=== PATIENT | female | born 1935 | race Caucasian/White ===

== ENCOUNTER 2018-11-02 09:27 | Inpatient (IN) ==
[2018-11-02 09:49] LABS: BASO# 0.04 X1000 (0.0-0.2); BASO% 0.5 % (0.0-0.8); EOS# 0.12 X1000 (0.0-0.7); EOS% 1.5 % (0.0-10.0); HEMATOCRIT 38.7 % (37.0-47.0); HEMOGLOBIN 13.2 g/dL (12.0-16.0); IMM GRAN# 0.01 X1000 (0.0-0.04); IMM GRAN% 0.1 % (0.0-0.5); LYMPH% 21.9 % (20.5-51.1); MCH 28.1 PG (27-31); MCHC 34.1 g/dL (33-37); MCV 82.3 FL (81-99); MONO# 0.75 X1000 (0.11-0.59); MONO% 9.7 % (1.7-9.3); MPV 8.2 FL (7.4-10.4); NEUT# 5.14 X1000 (1.4-6.5); NEUT% 66.3 % (42.2-75.2); PLT 349 X1000 (130-400); RDW 14.5 % (11.5-14.5); WBC 7.76 X1000 (4.8-10.8)
--- NOTE | 2018-11-02 09:52 | EKG Report ---
Test Performed on : 11/02/2018 09:28:21 AM Test Reason : weakness Blood Pressure : / mmHG Vent. Rate : 076 BPM Atrial Rate : 076 BPM P-R Int : 172 ms QRS Dur : 094 ms QT Int : 410 ms P-R-T Axes : 071 038 102 degrees QTc Int : 461 ms Normal sinus rhythm. Possible Left atrial enlargement Left ventricular hypertrophy with repolarization abnormality Abnormal ECG No previous ECGs available Unconfirmed Result
[2018-11-02 10:07] LABS: ALBUMIN 4.3 g/dL (3.5-5.0); CALCIUM 9.6 mg/dL (8.8-10.2); TOTAL BILIRUBIN 0.5 mg/dL (0.20-1.00); TOTAL PROTEIN 7.4 g/dL (6.3-8.3)
[2018-11-02 10:11] LABS: INR 0.95; PROTIME 13.2 Seconds (11.0-16.0)
[2018-11-02] MEDS ORDERED: KLOR-CON PO ONE (10:31)
[2018-11-02 10:43] LABS: BILIRUBIN URINE NEGATIVE (NEGATIVE); BLOOD URINE 1+ (NEGATIVE); CLARITY SL. CLOUDY (CLEAR); COLOR YELLOW; GLUCOSE URINE NEGATIVE (NEGATIVE); KETONE URINE NEGATIVE (NEGATIVE); LEUKOCYTES URINE 2+ (NEGATIVE); NITRITE URINE NEGATIVE (NEGATIVE); PROTEIN URINE 2+(100 mg/dL) mg/dL (NEGATIVE); UROBILINOGEN URINE NORMAL
--- NOTE | 2018-11-02 10:45 | Diag Imaging Result Doc PS360 ---
EXAM: CHEST-2 VIEWS 11/02/2018 HISTORY: weaknes ? fall TECHNIQUE: PA and lateral chest COMMENT: There is flattening of the hemidiaphragms. There is apparent COPD. There is a small platelike opacity in the left costophrenic angle. No evidence of pneumothorax or pleural fluid collections is present. The heart size and pulmonary vascularity are within normal limits. There is anterior wedging of what appears to be T10. There are no previous studies available for comparison. IMPRESSION: COPD. Apparent compression fracture of T10 of uncertain age. Electronically signed by Gurvinder San 11/02/2018 10:43 AM
[2018-11-02 10:58] LABS: URINE BACTERIA 1+ /HFP; URINE CAST NONE SEEN /LPF; URINE CRYSTAL NONE SEEN /HPF; URINE EPITHELIAL CELLS >10 /HPF (<10); URINE RBC <10 /HPF (<10); URINE SOURCE CLEAN CATCH; URINE WBC TNTC /HPF (<10); URINE YEAST NONE SEEN /HPF
--- NOTE | 2018-11-02 11:29 | EKG Report ---
Test Performed on : 11/02/2018 11:23:14 AM Test Reason : faint Blood Pressure : / mmHG Vent. Rate : 077 BPM Atrial Rate : 077 BPM P-R Int : 198 ms QRS Dur : 090 ms QT Int : 388 ms P-R-T Axes : 071 048 094 degrees QTc Int : 439 ms Normal sinus rhythm. Possible Left atrial enlargement ST & T wave abnormality, consider lateral ischemia Abnormal ECG When compared with ECG of 02-NOV-2018 09:28, (Unconfirmed) No significant change was found Unconfirmed Result
[2018-11-02] MEDS ORDERED: HYZAAR 100/12.5 MG TAB PO ONE (11:59)
[2018-11-02] MEDS ORDERED: HYDROCHLOROTHIAZIDE ONE (12:05)
[2018-11-02] MEDS ORDERED: HYDROCHLOROTHIAZIDE PO ONE (12:06)
[2018-11-02] MEDS ORDERED: COZAAR PO ONE (12:06)
[2018-11-02] MEDS ORDERED: NITROGLYCERIN TOP ONE (12:22)
--- NOTE | 2018-11-02 13:58 | Diag Imaging Result Doc PS360 ---
EXAM: CT ANGIOGRM PULMONARY ARTERIES INDICATION: faint TECHNIQUE: This exam was performed using automated exposure control, adjustment of mA or kV according to patient size, and/or use of iterative reconstruction technique. Thin section axial images and 3-D MIPS were obtained. COMPARISON: None. FINDINGS: There is no evidence of pulmonary embolism. There is extensive aortic atherosclerotic disease. There is ectasia of the descending aorta measuring up to 3.5 cm in diameter. There is no evidence of aortic dissection. There is trace pericardial fluid. There is no evidence of significant mediastinal or hilar lymphadenopathy. There is advanced pulmonary emphysema. There are mild patchy fibrotic changes at the periphery of both lungs. No airspace consolidations are appreciated. There is no pleural fluid collection and no pneumothorax. Limited views of the upper abdomen are essentially unremarkable. There is a compression deformity at T10 at the superior endplate. It is probably chronic as there is sclerosis at its margin. IMPRESSION: 1.Advanced pulmonary emphysema and mild patchy fibrotic changes at both lung peripheries. 2.Mild ectasia of the descending aorta. 3.Compression deformity at T10 and is probably chronic. 4.No evidence of pulmonary embolism. Electronically signed by Ventura Olivares 11/02/2018 1:55 PM
--- NOTE | 2018-11-02 15:29 | PROVIDER DOCUMENTATION ---
This chart was entered by Deborah Boston Scribe, acting as scribe for Adan Cain MD. HPI-General Adult - General Chief Complaint: Weakness Stated Complaint: SYNCOPE Time Seen by Provider: 11/02/18 09:28 Source: patient, EMS (first response) Allergies/Adverse Reactions: Patient Allergies Allergy/AdvReac Type Severity Reaction Status Date / Time No Known Allergies Allergy Verified 11/02/18 09:30 Home Medications: Home Medication List Medication Instructions Recorded Confirmed Last Taken Type Amlodipine Besylate [Norvasc] 5 mg PO DAILY 11/02/18 11/02/18 11/02/18 History Clonidine Patch [Aghdadjy-Qle-5] 1 patch TD Q7D 11/02/18 11/02/18 11/02/18 History SIMVAstatin [Zocor] 10 mg PO HS 11/02/18 11/02/18 Unknown History - History of Present Illness -Gen Adult Nature of Presenting Problems: 83 yowf presents to the ed with c/o fall this am when walking inside from being outside on her porch. pt sts "I felt my legs getting weak and I just fell" pt denies injury or jean and sts son was with her and witnessed fall. pt came by ems to ed to be checked out do to sons request. pt on exam is nontoxic in appearance Location of Pain/Injury: reports: none Pain Radiation: reports: no radiation Quality of Pain: reports: none Severity: reports: mild Onset/Duration: reports: just prior to arrival Timing: reports: gone now Context/Activities at Onset: reports: light activity Modifying Factors: improves with: nothing Associated Symptoms: reports: weakness (BLE), trouble walking (secondary to BLE weakness). denies: back/neck pain, chest pain, cough, fatigue, fever/chills, headaches, joint pain, nausea, shortness of breath, syncope, vomiting Similar Symptoms Previously?: No Recently seen or treated by another doctor?: No Review of Systems - Adult - REVIEW OF SYSTEMS - ADULT Constitutional: denies: chills, fever Eyes: reports: no symptoms reported Ears, Nose, Mouth & Throat: reports: no symptoms reported Cardiovascular: denies: chest pain, palpitations, syncope Respiratory: denies: cough, pleurisy, shortness of breath, wheezing Gastrointestinal: denies: abdominal pain, diarrhea, nausea, vomiting Genitourinary: reports: no symptoms reported Musculoskeletal: reports: see HPI, muscle weakness (BLE). denies: back pain, joint pain, joint swelling, neck pain Integumentary: reports: no symptoms reported Neurological: denies: ataxia, dizziness/vertigo, headache/migraines, loss of balance, numbness, paresthesia, seizure, slurred speech, syncope, tremors Psychiatric: reports: no symptoms reported Endocrine: reports: no symptoms reported Hematologic/Lymphatic: reports: no symptoms reported Allergic/Immunologic: reports: no symptoms reported All Other Systems: Reviewed and Negative Past History - Adult - PAST MEDICAL HISTORY-ADULT Review of Records: reports: Old Records Reviewed, Nursing Assessment Review, Medications Reviewed, Social history reviewed & non-contributory. Major Childhood Illnesses: reports: denies history Cardiovascular: reports: HTN, hyperlipidemia Respiratory: reports: denies history Gastrointestinal: reports: denies history Obstetrical/Gynecological: reports: denies history Genitourinary: reports: denies history Musculoskeletal: reports: denies history Hand Dominance: Right Handed Neurological: reports: denies history Psychiatric: reports: denies history Endocrine/Immune: reports: denies history Other Conditions: reports: denies history - PRIOR SURGERIES/PROCEDURES Surgical/Procedure History: reports: reviewed, not pertinent - IMMUNIZATION STATUS Childhood Immunizations: See Nurse Assessment Flu Vaccine: See Nurse Assessment - FAMILY HISTORY Family History: reviewed, not pertinent - SOCIAL HISTORY Smoking: cigarettes, greater than 1 pack/day Provider spent 3-5 mins advising pt. on dangers of tobacco.: Discussed manners to quit use, and f/u contacts for add'l counseling. Substance Use: denies Living Situation: family (lives with son) Physical Exam-General - PHYSICAL EXAM-ADULT Initial Vital Signs Reviewed: Yes (noted BP 229/88) - CONSTITUTIONAL General Appearance: appears well, alert, no apparent distress (pt denies pain or injury) - EYES Eyes: PERRL/EOMI, pink conjunctivae - HEAD, EARS, NOSE, MOUTH & THROAT HENMT: moist mucous membranes, normal ENT inspection - NECK Neck: non-tender, full range of motion, normal inspection, carotid bruit (bilateral) - RESPIRATORY Respiratory: chest non-tender, lungs clear, normal breath sounds - CARDIOVASCULAR Cardiovascular: normal peripheral pulses, regular rate, rhythm - GASTROINTESTINAL (ABDOMEN) Abdominal Exam: normal bowel sounds, non tender, soft - LYMPHATIC Lymphatic: no adenopathy - MUSCULOSKELETAL Back Exam: normal inspection, no CVA tenderness, no vertebral tenderness Extremity: normal range of motion, non-tender, normal gait, normal inspection, no pedal edema, no calf tenderness, normal capillary refill, pelvis stable - SKIN Integumentary: normal color, normal turgor, warm/dry - NEUROLOGIC Neurologic: grossly normal, no motor/sensory deficits - PSYCHIATRIC Psych/Mental Status: normal mood/affect, normal thought content, normal thought process, oriented x 3 Progress - PLAN OF CARE/RESULTS Progress/Plan/Lab Results: Vital Signs - 8 hr 11/02/18 09:27 11/02/18 09:52 Temperature 98 F Pulse Rate 77 83 Respiratory Rate 18 20 Blood Pressure 211/100 202/102 O2 Sat by Pulse Oximetry 95 95 Laboratory Results - last 24 hr 11/02/18 09:33 WBC 7.76 RBC 4.70 Hgb 13.2 Hct 38.7 MCV 82.3 MCH 28.1 MCHC 34.1 RDW Std Deviation 14.5 Plt Count 349 MPV 8.2 Immature Gran % (Auto) 0.1 Neut % (Auto) 66.3 Lymph % (Auto) 21.9 Reeves % (Auto) 9.7 H Eos % (Auto) 1.5 Baso % (Auto) 0.5 Immature Gran # (Auto) 0.01 Neut # (Auto) 5.14 Lymph # (Auto) 1.70 Reeves # (Auto) 0.75 H Eos # (Auto) 0.12 Baso # (Auto) 0.04 Orders Category Date Time Status Cardiac Monitoring DIRECTED Care 11/02/18 09:24 Active Nursing- Obtain EKG ONCE Care 11/02/18 09:24 Active Saline Loc NOW Care 11/02/18 09:52 Active CHEST-2 VIEWS [RAD] Stat Exams 11/02/18 09:24 Ordered CBC WITH DIFF [HEME] Stat Lab 11/02/18 09:33 Completed CK PROFILE [SP CHEM] Stat Lab 11/02/18 09:33 Received CMP [COMPREHENSIVE METABOLIC PANEL] [CHEM] Stat Lab 11/02/18 09:33 Received D-DIMER [COAG] Stat Lab 11/02/18 09:33 Received MAGNESIUM [CHEM] Stat Lab 11/02/18 09:33 Received PRO B-NATRIURETIC PEPTIDE Stat Lab 11/02/18 09:33 Received PROTIME WITH INR [COAG] Stat Lab 11/02/18 09:33 Received TROPONIN T Stat Lab 11/02/18 09:[address] W/POSS RFLX CULT [URINALYSIS] Stat Lab 11/02/18 09:27 Uncollected EKG [EKG] Stat Ther 11/02/18 09:24 Draft Result Diagrams: 11/02/18 09:33 11/02/18 09:33 - REASSESSMENT Reassessment #1 Time Reassessed: 12:17 (pt is resting in bed) Status: improving Reassessment #2 Time Reassessed: 14:46 (pt is resting, in no distress) Status: unchanged - EKG 1 Time of EKG reading by physician:: 09:28 EKG Read and Signed by:: Adan Cain EKG Interpretation (*Must complete 3 of following elements*): Abnormal Rate: 76 Rhythm: nsr Jones: normal QRS: LVH (with repolarization abnormality) IL Interval: normal ST Wave: normal Comments: possible left atrial enlargment 2 Time of EKG reading by physician:: 11:23 EKG Read and Signed by:: Adan Cain EKG Interpretation (*Must complete 3 of following elements*): Abnormal Rate: 77 Rhythm: nsr Jones: normal QRS: other (poss left atrial enlargmeent) IL Interval: normal Prior EKG Comparison: changes noted Comments: st and t wave abnormlaity, consider lateralischemia 3 Time of EKG reading by physician:: 15:14 EKG Read and Signed by:: Adan Cain EKG Interpretation (*Must complete 3 of following elements*): Abnormal Rate: 75 Rhythm: nsr Jones: normal QRS: LVH (with repolarization abnormality) IL Interval: normal ST Wave: normal Prior EKG Comparison: changes noted - XRAY 1 XRAY: Bilateral XRAY Study: Chest Impression: See EMR Report (EXAM: CHEST-2 VIEWS 11/02/2018 HISTORY: weaknes ? fall TECHNIQUE: PA and lateral chest COMMENT: There is flattening of the hemidiaphragms. There is apparent COPD. There is a small platelike opacity in the left costophrenic angle. No evidence of pneumothorax or pleural fluid collections is present. The heart size and pulmonary vascularity are within normal limits. There is anterior wedging of what appears to be T10. There are no previous studies available for comparison. IMPRESSION: COPD. Apparent compression fracture of T10 of uncertain age. Electronically signed by Gurvinder San 11/02/2018 10:43 AM 11/02/18 1043 Interpreting Physician: Gurvinder Valdes MD Dictated Date/Time: 11/02/18 1041 cc: Adan Cain MD; None,PCP) - CT/MRI 1 CT Study: Angiogram Impression: See EMR Report (EXAM: CT ANGIOGRM PULMONARY ARTERIES INDICATION: faint TECHNIQUE: This exam was performed using automated exposure control, adjustment of mA or kV according to patient size, and/or use of iterative reconstruction technique. Thin section axial images and 3-D MIPS were obtained. COMPARISON: None. FINDINGS: There is no evidence of pulmonary embolism. There is extensive aortic atherosclerotic disease. There is ectasia of the descending aorta measuring up to 3.5 cm in diameter. There is no evidence of aortic dissection. There is trace pericardial fluid. There is no evidence of significant mediastinal or hilar lymphadenopathy. There is advanced pulmonary emphysema. There are mild patchy fibrotic changes at the periphery of both lungs. No airspace consolidations are appreciated. There is no pleural fluid collection and no pneumothorax. Limited views of the upper abdomen are essentially unremarkable. There is a compression deformity at T10 at the s uperior endplate. It is probably chronic as there is sclerosis at its margin. IMPRESSION: 1.Advanced pulmonary emphysema and mild patchy fibrotic changes at both lung peripheries. 2.Mild ectasia of the descending aorta. 3.Compression deformity at T10 and is probably chronic. 4.No evidence of pulmonary embolism. Electronically signed by Ventura Olivares 11/02/2018 1:55 PM 11/02/18 1355 Interpreting Physician: Ventura Olivares MD Dictated Date/Time: 11/02/18 1346 cc: Adan Cain MD; None,PCP) - CONSULTS/PCP/HOSPITALIST Notification #1 *Consult/PCP/Hospitalist*: CT is currently down and spoke with dr traylor Time Discussed: 12:48 Reason/Comments: phone consult #2 Consult: hopsitalist dr levin Time Discussed: 14:46 Consult Disposition: Admit Departure - Departure Date of Disposition Decision: 07/26/19 Time of Disposition Decision: 14:47 DIAGNOSIS: Tobacco use disorder Fall Qualifiers: Encounter type: initial encounter Qualified Code(s): W19.XXXA - Unspecified fall, initial encounter HTN (hypertension) Qualifiers: Hypertension type: unspecified Qualified Code(s): I10 - Essential (primary) hypertension Disposition: ADMITTED INPATIENT 09 Certified Medical Emergency: Emergent Condition: Stable Additional Freetext Instructions: ED Follow Up Instructions: You have been treated by a care provider in the Emergency Department. These instructions are being provided to you so you can have an understanding of how to care for yourself upon discharge. Upon discharge from the Emergency Department, you are responsible for making arrangements for follow-up care by a physician of your choice. Take all prescribed medications as directed. Return to the Emergency Department immediately for any new or worsening symptom s. You may call the Physician Referral phone number at [phone] to obtain a list of Physicians who are taking new patients. Referrals and Follow-Ups: None,PCP [Primary Care Provider] - - Critical Care Note This patient required my direct & personal management of CC.: No Attestation - Physician/ CASSIDY Attestation Patient care was provided by Advanced Practice Provider:: No The physician spent face to face time with patient:: Yes Advanced Practice Provider documentation review:: Supervising physician onsite and consulted in the evaluation and care of this patient. The physician did have a face to face encounter with the patient. This chart was documented by the indicated scribe, (Deborah Boston Scribe) and accurately reflects the services I performed and decisions made by me, Adan Cain MD, as attested by the provider's signature.
[2018-11-02] MEDS ORDERED: NICODERM PATCH TD ONE (16:02)
--- NOTE | 2018-11-02 16:33 | EKG Report ---
Test Performed on : 11/02/2018 3:14:11 PM Test Reason : repeat Blood Pressure : / mmHG Vent. Rate : 075 BPM Atrial Rate : 075 BPM P-R Int : 174 ms QRS Dur : 090 ms QT Int : 428 ms P-R-T Axes : -21 011 -28 degrees QTc Int : 477 ms Normal sinus rhythm. Left ventricular hypertrophy with repolarization abnormality Abnormal ECG When compared with ECG of 02-NOV-2018 11:23, (Unconfirmed) T wave inversion now evident in Inferior leads Unconfirmed Result
[2018-11-02] MEDS ORDERED: ROCEPHIN 1 GM in NS 50 ML IV SCH (18:29)
[2018-11-02] MEDS ORDERED: ZOFRAN IV PRN (18:29)
--- NOTE | 2018-11-02 19:39 | HISTORY AND PHYSICAL ---
CHIEF COMPLAINT: Fall, syncope. HISTORY OF PRESENT ILLNESS: This is an 83-year-old female who presented to the emergency room after falling while walking inside the house from her porch. She states that she became weak and did not know what was going on and just fell. Is unsure if she did have a loss of consciousness. The son asked that she come to the ER for evaluation. The patient states that she has been weak for a few days. She has had trouble walking for a few days. She denies any other symptoms. The patient is a poor historian. She is unable to tell me her doctor, where she lives. She is unable to tell about her medicines or answer most questions about her prior health. At this time there are no family members present. PAST MEDICAL HISTORY: Hypertension and hyperlipidemia. PAST SURGICAL HISTORY: Unknown. SOCIAL HISTORY: She states she smokes a pack a day. She denies alcohol or illicit drug use. ALLERGIES: No known drug allergies. HOME MEDICATIONS: A list will be obtained by the nursing staff once verified will review restart as appropriate. REVIEW OF SYSTEMS: Difficult to obtain from the patient. She does state that she has been weak. She denied any dizziness, any chest pain or palpitations, any shortness of breath, any fevers or chills, any nausea, vomiting, diarrhea, constipation, black or bloody vomitus or stools, any hematuria, dysuria, frequency, urgency. PHYSICAL EXAMINATION: GENERAL: This is an 86-year-old female who is lying on the stretcher in the emergency room in no distress. VITAL SIGNS: Blood pressure is 121/84 with a heart rate of 81, respirations are 19, temperature is 97.9 degrees with room air saturations 94-96%. HEENT: Pupils equal, round, react to light EOMs are intact sclerae anicteric. Head is normocephalic, atraumatic. Mucous membranes are moist. NECK: Supple with trachea midline. She does have bruits noted bilateral on auscultation. CARDIOVASCULAR: Regular rate and rhythm. S1 and S2 appreciated. Calves are nontender bilateral with peripheral pulses palpable. PULMONARY: Breath sounds are clear with no increased work of breathing noted. Chest rises and falls symmetric respiration. GASTROINTESTINAL: Abdomen soft, nontender, nondistended with bowel sounds in all 4 quadrants. GENITOURINARY: No CVA or suprapubic tenderness. NEUROLOGIC: She is alert, she is oriented to herself, her birthday, she knows she is at a hospital. She is unable to state the state or the city she is in at this time. LABS: WBC is 7.7 with hemoglobin 13.2, hematocrit 38.7, platelets of 349,000. Sodium is 136, potassium 3, BUN 12, creatinine 1 with a glucose of 135. Troponins are negative on multiple occasions. Urinalysis a clean-catch specimen has 2+ protein, 1+ blood, too numerous to count white blood cells with greater than 10 epithelial cells, 1+ bacteria. D-dimer is 2.37. Chest x- ray reveals COPD and apparent compression fracture of T10 of uncertain age. Pulmonary arteriogram revealed advanced pulmonary emphysema, mild ectasia of the descending aorta, compression deformity at T10 which is probably chronic. No evidence of pulmonary embolism. Urine culture is pending. ASSESSMENT AND PLAN: 1. Fall. 2. Generalized weakness. 3. Possible urinary tract infection. 4. Hypertension. 5. Tobacco use and abuse. 6. Hypokalemia. 7. Elevated D-dimer with a negative CTA pulmonary. PLAN: The patient will be transferred to [facility]. She will be admitted to medical floor, placed on telemetry with neuro checks for at least 24 hours. Will update and confirm her home medications and restart as appropriate. Urine culture is pending. Will give Rocephin daily and further antibiotics will be culture driven. Repeat a CBC and CMP in the morning. We will obtain an echocardiogram as well as a lower extremity Doppler. As she did have a questionable syncopal episode and she does have bilateral bruits will obtain a carotid ultrasound bilateral. Give nicotine patch daily. She will be placed on fall precautions. For DVT prophylaxis will use SCDs, gastrointestinal prophylaxis Prilosec. We will continue to trend her troponins and cardiac profile. Further treatments pending hospital course. Dictated by CHELSEA Hernandez for Justus Rios MD cc: CHELSEA Hernandez MD
--- NOTE | 2018-11-02 20:58 | HISTORY AND PHYSICAL ---
ADDENDUM: Patient is an 83-year-old female who apparently was at home ambulating. She had a witnessed near syncopal episode. She has been having some weakness as well. Her D-dimer is elevated. CT is negative for pulmonary emboli. Ultrasound is pending. I am going to admit her to the hospital, place her on telemetry, IV fluids, and will follow. cc: Justus Rios MD
[2018-11-03 04:58] LABS: BASO# 0.03 X1000 (0.0-0.2); BASO% 0.4 % (0.0-0.8); EOS# 0.13 X1000 (0.0-0.7); EOS% 1.9 % (0.0-10.0); HEMATOCRIT 34.8 % (37.0-47.0); HEMOGLOBIN 11.7 g/dL (12.0-16.0); IMM GRAN# 0.02 X1000 (0.0-0.04); IMM GRAN% 0.3 % (0.0-0.5); LYMPH# 2.34 X1000 (1.2-3.4); LYMPH% 34.9 % (20.5-51.1); MCH 28.3 PG (27-31); MCHC 33.6 g/dL (33-37); MCV 84.1 FL (81-99); MONO# 0.66 X1000 (0.11-0.59); MONO% 9.9 % (1.7-9.3); MPV 8.9 FL (7.4-10.4); NEUT# 3.52 X1000 (1.4-6.5); NEUT% 52.6 % (42.2-75.2); PLT 279 X1000 (130-400); RBC 4.14 XMIL (4.2-5.4); RDW 14.8 % (11.5-14.5)
[2018-11-03 05:28] LABS: POTASSIUM 2.9 mmol/L (3.5-5.1)
[2018-11-03 05:29] LABS: ALB/GLOB RATIO 1.4; ALBUMIN 3.6 g/dL (3.5-5.0); CALCIUM 9.3 mg/dL (8.8-10.2); CREATININE 1.8 mg/dL (0.5-0.9); TOTAL BILIRUBIN 0.31 mg/dL (0.20-1.00); TOTAL PROTEIN 6.1 g/dL (6.3-8.3)
[2018-11-03] MEDS: PRILOSEC PO SCH (06:21)
[2018-11-03] MEDS: NICODERM PATCH TD SCH (09:27)
[2018-11-03] MEDS ORDERED: KLOR-CON PO ONE (11:01)
[2018-11-03] MEDS: LR 1,000 ML IV SCH (11:32)
--- NOTE | 2018-11-03 12:34 | PROGRESS NOTE ---
DATE: 11/03/2018 SUBJECTIVE: This morning, Ms. Perkins refers to be doing fairly okay. However, she refers that when she got up to do her orthostatic vitals, she felt slightly dizzy, and she had to sit down. OBJECTIVE: Vital Signs: Current blood pressure is 111/48, pulse of 67, respirations 18, temperature is 98.6. The patient is saturating 99% on room air. The patient's standing vital signs were blood pressure 94/44 with a pulse of 94. General: Ms. Perkins is an elderly female, 83 years old. She was in bed, no distress. HEENT: Mucosa is slightly dry. Anicteric. Acyanotic. Neck: Supple. Chest: Good air entry bilateral. There were no crepitations, no rhonchi. Cardiovascular: Regular rate and rhythm. Abdomen: Soft, nontender. Bowel sounds present. Extremities: No pedal edema. SNOWBLOWER MECHANIC: The patient is awake, alert, oriented. LABORATORY DATA: WBC is 6.70, hemoglobin is still at 13.7, platelet count of 279. Chemistry is also reviewed. Potassium is 2.9, creatinine is 1.8. ASSESSMENT: 1. Syncope with positive orthostatic vitals, consistent with syncope induced by orthostatic hypotension, most likely due to a combination of blood pressure medications at home as well as volume depletion. For now, we are going to continue with fluid resuscitation. 2. Clinical volume depletion. Will continue with gentle IV fluids overnight and re-evaluate her hydration status as well as orthostatic vitals tomorrow. 3. History of hypertension. For now, we will withhold antihypertensives. 4. Acute kidney injury secondary to volume depletion. We will continue with the plan as outlined above and re-evaluate and repeat her renal functions for tomorrow morning. 5. Abnormal urinalysis. However, the patient is asymptomatic. I do not think her symptoms were as a result of UTI. I withheld the antibiotics for now. cc: MD TERESO Lorenzo
--- NOTE | 2018-11-03 15:33 | Extremity Venous Study ---
PROCEDURE NAME: Venous U/S Bilateral Legs - 11/02/2018 PROCEDURE: Lower extremity venous duplex study. DATE OF STUDY: 11/03/2018. REFERRING PHYSICIAN: Gui READING PHYSICIAN: Michelle. DESKTOP TECHNICIAN: Umesh. INDICATION: Elevated D-dimer. FINDINGS: The deep and superficial veins of both lower extremities were imaged throughout their course. They are compressible, patent and without thrombus. INTERPRETATION: No DVT or SVT of either lower extremity. cc: MD Katerin Woodward CRNP
[2018-11-04] MEDS: LR 1,000 ML IV SCH ×3 (01:47→19:25)
[2018-11-04] MEDS: PRILOSEC PO SCH (06:33)
[2018-11-04] MEDS ORDERED: TYLENOL PO PRN (06:41)
[2018-11-04 08:00] LABS: BASO# 0.04 X1000 (0.0-0.2); BASO% 0.6 % (0.0-0.8); EOS# 0.28 X1000 (0.0-0.7); EOS% 3.9 % (0.0-10.0); HEMATOCRIT 33.5 % (37.0-47.0); HEMOGLOBIN 11.2 g/dL (12.0-16.0); IMM GRAN# 0.02 X1000 (0.0-0.04); IMM GRAN% 0.3 % (0.0-0.5); LYMPH# 2.02 X1000 (1.2-3.4); LYMPH% 28.2 % (20.5-51.1); MCH 28.1 PG (27-31); MCHC 33.4 g/dL (33-37); MONO# 0.68 X1000 (0.11-0.59); MONO% 9.5 % (1.7-9.3); MPV 8.8 FL (7.4-10.4); NEUT# 4.13 X1000 (1.4-6.5); NEUT% 57.5 % (42.2-75.2); PLT 290 X1000 (130-400); RBC 3.99 XMIL (4.2-5.4); RDW 14.8 % (11.5-14.5); WBC 7.17 X1000 (4.8-10.8)
[2018-11-04 08:26] LABS: ALBUMIN 3.1 g/dL (3.5-5.0); CALCIUM 9.1 mg/dL (8.8-10.2); CREATININE 2.2 mg/dL (0.5-0.9); PHOSPHORUS 3.5 mg/dL (2.7-4.5); POTASSIUM 3.9 mmol/L (3.5-5.1)
[2018-11-04] MEDS ORDERED: DUONEB (A & A) INH PRN (09:02)
[2018-11-04] MEDS: NICODERM PATCH TD SCH (09:16)
[2018-11-04] MEDS: NORVASC PO SCH (09:17)
--- NOTE | 2018-11-04 09:26 | PROGRESS NOTE ---
DATE: 11/04/2018 SUBJECTIVE: This morning, Ms. Perkins referred to be doing okay. Denies any new complaints. She denies any blacking out. OBJECTIVE: Vital Signs: Blood pressure is 182/68, pulse of 71, respirations are 19, temperature is 98.5 degrees, the patient is saturating 94-95% on room air. General Examination: Ms. Perkins is an 83-year-old, female. She is in bed. No distress. HEENT: Mucosa is pink. Anicteric. Acyanotic. Neck: Supple. Chest: Good air entry bilaterally. Some faint end expiratory wheezing. Cardiovascular: Regular rate and rhythm. There is a 3/6 TR murmur and a 2/6 murmur. Abdomen: Soft, nontender. Bowel sounds present. Extremities: No pedal edema. PATTERNMAKER PRESSURE CAST: The patient is awake, alert, and oriented. Laboratory Data: This morning, WBCs 7.17, hemoglobin is 11.2, platelet count of 290,000. Chemistry: Sodium is 135, potassium is 3.9, chloride is 98, bicarb is 26, creatinine is up to 2.3. ASSESSMENT: 1. Syncope on presentation, improved. The patient has not had any more syncopal episodes. Orthostatic vitals yesterday were positive. There is a plan to repeat it this morning with pending for the results. 2. Clinical volume depletion. Clinically, patient is doing better. 3. Renal failure, presumably acute as a result of volume depletion. Creatinine has gotten slightly worsened overnight. Patient is on Omeprazole. We will do renal studies including urine sodium, urine creatinine, and urine eosinophils. We will also get a renal ultrasound. 4. Hypertension. Medications were withheld yesterday because of episodes of hypotension. We will slowly reintroduce her home medications. 5. Heart murmur. The patient seems to have a tricuspid regurgitation as well as an aortic stenosis murmur. In the face of the syncope, we are going to do an echocardiogram to rule out any severe aortic stenosis as a possible etiology of the syncopal episode. 6. History of advanced chronic obstructive pulmonary disease/emphysema. The patient is currently asymptomatic. We are going to order as needed nebulization if needed. PLAN: In general, I think Ms. Perkins is doing a lot better. Clinically, she feels well. Her blood pressure has gone up so we will restart her on some of her home medications. We are also pending her orthostatic vitals this morning. Her creatinine has worsened. She does not seem to have any obstructive bladder on physical exams. We will do renal studies to get a better idea of these renal abnormalities. cc: Ananda De MD MTDD
--- NOTE | 2018-11-04 10:05 | ECHO REPORT ---
ORDER DATE: 11/03/2018 STUDY PERFORMED: A 2D echocardiogram. FINDINGS: 1. Technically suboptimal study. 2. Very poor parasternal windows. 3. Aortic valve leaflets not well visualized. 4. Pulmonic valve not well visualized. 5. Mitral valve was normal. 6. There is mitral annular calcification. 7. Tricuspid valve was normal. 8. There is mild mitral regurgitation. 9. Mild tricuspid regurgitation. 10. Peak velocity across the tricuspid valve less than 2 m/sec. 11. Peak velocity across the aortic valve less than 2 m/sec. 12. There is no aortic stenosis. 13. There is mild aortic regurgitation by Doppler studies. 14. Normal left ventricular cavity size. 15. Estimated ejection fraction of 60%. 16. There is left ventricular hypertrophy. 17. There is diastolic dysfunction. 18. Anterior echo-free space suggestive of pericardial fat pad noted. 19. There is no pericardial effusion or obvious intracardiac mass or thrombus seen. cc: MD Katerin Mendenhall CRNP
[2018-11-04 10:40] LABS: UR CREAT RANDOM 26.9 mg/dL (11-20)
--- NOTE | 2018-11-04 13:03 | Diag Imaging Result Doc PS360 ---
EXAM: US RENAL 2 (RETROPER) COMPLETE 11/04/2018 HISTORY: audrey/arf TECHNIQUE: Renal ultrasound COMMENT: The kidneys are without evidence of hydronephrosis or mass. The urinary bladder is not distended. The right kidney is 10.5 x 4.2 x 3.6 cm, the left is 9.9 x 4.4 x 5.2 cm. There is a 12 mm cyst in the left kidney anteriorly. IMPRESSION: No evidence of obstructive uropathy. Electronically signed by Gurvinder San 11/04/2018 1:01 PM
[2018-11-05] MEDS ORDERED: APRESOLINE IV PRN
[2018-11-05] MEDS: APRESOLINE IV PRN ×2 (00:31→20:19)
[2018-11-05] MEDS: LR 1,000 ML IV SCH (05:31)
[2018-11-05 08:13] LABS: HEMATOCRIT 35.1 % (37.0-47.0); HEMOGLOBIN 11.7 g/dL (12.0-16.0); MCH 28.3 PG (27-31); MCHC 33.3 g/dL (33-37); MCV 84.8 FL (81-99); MPV 8.8 FL (7.4-10.4); RBC 4.14 XMIL (4.2-5.4); RDW 14.7 % (11.5-14.5); WBC 6.52 X1000 (4.8-10.8)
[2018-11-05 08:55] LABS: ALBUMIN 3.5 g/dL (3.5-5.0); PHOSPHORUS 3.3 mg/dL (2.7-4.5); POTASSIUM 3.2 mmol/L (3.5-5.1)
[2018-11-05] MEDS: NORVASC PO SCH (09:20)
[2018-11-05] MEDS: NICODERM PATCH TD SCH (09:20)
--- NOTE | 2018-11-05 14:18 | PROGRESS NOTE ---
DATE: 11/05/2018 SUBJECTIVE: This morning Ms. Perkins refers to be doing a lot better. Denies any dizziness. Orthostatic vitals checked this morning continues to be positive. OBJECTIVE: Vital signs: Blood pressure 188/74, pulse of 87, respirations 20, and temperature 98.1 degrees. General: Ms. Perkins is an 83-year-old female. She is in bed in no distress. HEENT: Mucosa is pink and moist. Anicteric and acyanotic. Neck: Supple. Chest: Clear to auscultation. Cardiovascular: Regular rate and rhythm. Abdomen: Soft. Nontender. Extremities: No pedal edema. Cardiovascular: Regular rate and rhythm. There is a 3/6 TR murmur and a 2/6 murmur. Abdomen: Soft and nontender. Extremities: No pedal edema. SLIVER LAP MACHINE TENDER: Patient is awake, alert, and oriented. LABORATORY DATA: Data has been removed. CBC is 6.52, hemoglobin is 11.7, and platelet count of 324,000. Chemistry is also reviewed. Potassium is 3.2, creatinine is 2.0. PTH 74. ASSESSMENT: 1. Syncope on presentation secondary to orthostatic hypotension. 2. Clinical volume depletion improving. 3. Acute kidney injury. We will continue with fluid resuscitation. Creatinine is getting better. 4. Hypertension. 5. Advanced COPD/emphysema, currently asymptomatic. cc: Ananda De MD MTDD
--- NOTE | 2018-11-05 15:32 | Diag Imaging Result Doc PS360 ---
CHEST-2 VIEWS - 11/05/2018 INDICATION: hypoxia/chest pain COMPARISON: 11/02/2018 FINDINGS: Stable COPD. Stable biapical pleural scarring. No infiltrates or edema. Stable mild compression deformity in the lower thoracic spine. Heart size and pulmonary vascularity remain normal. IMPRESSION: No change from prior. COPD with pulmonary scarring. Electronically signed by Germain Guillaume 11/05/2018 3:29 PM
[2018-11-05] MEDS: NS 1,000 ML IV SCH (15:46)
[2018-11-06] MEDS: APRESOLINE IV PRN (04:07)
[2018-11-06] MEDS: NS 1,000 ML IV SCH (04:07)
[2018-11-06 08:04] LABS: BASO# 0.03 X1000 (0.0-0.2); BASO% 0.5 % (0.0-0.8); EOS# 0.22 X1000 (0.0-0.7); EOS% 3.7 % (0.0-10.0); HEMATOCRIT 35.4 % (37.0-47.0); LYMPH# 1.12 X1000 (1.2-3.4); MCH 28.1 PG (27-31); MCHC 33.9 g/dL (33-37); MCV 82.9 FL (81-99); MONO# 0.57 X1000 (0.11-0.59); MONO% 9.6 % (1.7-9.3); MPV 8.9 FL (7.4-10.4); NEUT# 3.97 X1000 (1.4-6.5); NEUT% 67.2 % (42.2-75.2); PLT 308 X1000 (130-400); RBC 4.27 XMIL (4.2-5.4); RDW 14.9 % (11.5-14.5); WBC 5.91 X1000 (4.8-10.8)
[2018-11-06 08:23] LABS: ALBUMIN 3.6 g/dL (3.5-5.0); CALCIUM 9.5 mg/dL (8.8-10.2); CREATININE 1.4 mg/dL (0.5-0.9); PHOSPHORUS 3.1 mg/dL (2.7-4.5); POTASSIUM 3.1 mmol/L (3.5-5.1)
[2018-11-06] MEDS ORDERED: COREG PO SCH (09:30)
[2018-11-06] MEDS: NORVASC PO SCH (10:12)
[2018-11-06] MEDS: NICODERM PATCH TD SCH (10:12)
[2018-11-06 12:11] VITALS: BP 139/76
--- NOTE | 2018-11-06 21:52 | DISCHARGE SUMMARY ---
ADMISSION DATE: 11/02/2018 DISCHARGE DATE: 11/06/2018 DISPOSITION: Home. FOLLOWUP: 1. Dr. Liriano. 2. Dr. Griffin. CONSULTATIONS DURING THIS ADMISSION: None. IMAGING STUDIES OF SIGNIFICANCE: 1. Chest x-ray on presentation did show COPD and apparent compression fracture of T11 of uncertain age. 2. Pulmonary CTA of the lungs did show advanced pulmonary emphysema, mild patchy fibrotic changes, and mild ectasia of the descending aorta. There is also a compression deformity of T10 and it is probably chronic. 3. Doppler ultrasound of the lower extremities was negative. 4. Echocardiogram did show an ejection fraction of 60%, left ventricular hypertrophy, some diastolic dysfunction. No wall motion abnormality. 5. Renal ultrasound showed no evidence of obstructive uropathy. 6. Repeat chest x-ray showed no changes from prior. COPD with pulmonary scarring. ADMISSION DIAGNOSES: 1. Fall. 2. Generalized weakness. 3. Possible urinary tract infection. 4. Hypotension. 5. Tobacco use. DIAGNOSES AT TIME OF DISCHARGE: 1. Syncope on presentation secondary to orthostatic hypotension, improved. 2. Clinical volume depletion. 3. Acute kidney injury secondary to volume depletion. 4. Hypertension. 5. Advanced chronic obstructive pulmonary disease/emphysema. 6. Chronic T10 compression fracture. Patient is advised to follow up with Neurosurgery services in [place]. Of note, patient does not have any neurological deficit from that. She has been evaluated on 2 different occasions by Physical Therapy. She has been able to do 270, full weightbearing with contact guard assistance. 7. Mild cognitive decline. Questionable for Alzheimer's disease. DISCHARGE MEDICATIONS: 1. Simvastatin 10 mg p.o. at bedtime. 2. Amlodipine 5 mg p.o. daily. 3. Donepezil 5 mg p.o. daily. 4. Carvedilol 6.25 b.i.d. RECOMMENDATIONS: 1. Patient to follow up with Neurosurgery services in [place] within 1 week. 2. Patient is to follow up with her primary care doctor, Dr. Liriano, in 1 week with a repeat BMP to follow up on her renal function. 3. Patient to follow up with Neurology for adequate and proper evaluation of her cognitive decline. PRESENTING COMPLAINT: Syncope. HISTORY OF PRESENTING COMPLAINT: Ms. Perkins is an 83-year-old, female, with a history of multiple comorbidities including hypertension, dyslipidemia, who came to the emergency department after she fell. She was sitting on her porch, got up to go and do something inside, and she felt dizzy and fell. She was not sure if she lost consciousness. Apparently, she has been feeling weak for some time. Upon presenting to the emergency department, the patient was evaluated. She was hypertensive. However, orthostatic vitals were positive. The patient was subsequently admitted for orthostatic hypotension. HOSPITAL COURSE: Ms. Perkins was admitted to the medical floor, was found to be volume depleted, was adequately volume resuscitated. Klonopin patch was also removed. Subsequently, her blood pressure got better and she became hypertensive. Subsequently, she was started back on her amlodipine, and this morning, we have added carvedilol. Ms. Perkins on her investigation, it also became apparent that she had a chronic T10 compression fracture, which is currently asymptomatic. She has been advised to follow up with Neurosurgery services in [place]. During the hospital course, creatinine went up to 2.2 at some point. This has gradually come down to 1.4 this morning. The patient has been advised to continue adequate oral hydration, and repeat her renal function tests within a week and follow up with her primary care doctor (Dr. Liriano). This morning, Ms. Perkins refers to feel a whole lot better. She was evaluated by Physical Therapy on the and on the . The last evaluation revealed that she was able to have a good maintenance of balance without any handhold support. She also had good maintenance of balance without any handhold support with static standing. She did 270, full weightbearing, with physical therapy yesterday, with front wheel walker. We think this morning, Ms. Perkins is clinically stable for discharge. She has no more dizziness. She is still mildly orthostatic, but not symptomatic. She is being discharged in stable condition. TIME SPENT FOR DISCHARGE: 36 minutes. cc: MD TERESO Lorenzo
== END 2018-11-06 14:22 | disposition home health service (06) | DRG 312 ==
LOC: EDBD → P.ED 09:27 → SUATTDRO 15:54 → P.EDIPHOLD 15:54 → 1N 17:21
PROVIDERS: ATTEND Internal Medicine
CPT/HCPCS: 71020; 71046; 71275; 76770; 80053; 80069; 81001; 82310; 82550; 82570; 83735; 83880; 83970; 84100; 84300; 84484; 85025; 85027; 85379; 85610; 87088; 87205; 93005; 93306; 93880; 93970; 94640; 94761; 97163; 97530; 99285; A9270; J0360; J0696; J7030; J7120; Q9967

== ENCOUNTER 2018-12-01 14:22 | Inpatient (IN) ==
--- NOTE | 2018-12-01 14:43 | PROVIDER DOCUMENTATION ---
HPI-General Adult - General Chief Complaint: Weakness Stated Complaint: WEAKNESS Time Seen by Provider: 12/01/18 14:50 Source: patient, EMS Allergies/Adverse Reactions: Patient Allergies Allergy/AdvReac Type Severity Reaction Status Date / Time No Known Allergies Allergy Verified 11/02/18 09:30 Home Medications: Home Medication List Medication Instructions Recorded Confirmed Last Taken Type Amlodipine Besylate [Norvasc] 10 mg PO DAILY 11/02/18 12/01/18 11/02/18 History SIMVAstatin [Zocor] 10 mg PO HS 11/02/18 12/01/18 Unknown History Carvedilol [Coreg] 6.25 mg PO BID #120 tab 11/06/18 12/01/18 Unknown Rx Donepezil HCl [Aricept] 5 mg PO QHS 12/01/18 12/01/18 Unknown History Sertraline [Zoloft] 25 mg PO QHS 12/01/18 12/01/18 Unknown History - History of Present Illness -Gen Adult Nature of Presenting Problems: 83 yr old F, hx of HTN, hyperlipidemia, presents today via EMS after sudden onset of weakness. Pt states that yesterday she was able to ambulate on her own, without her walker, but this morning, had difficulty getting out of bed. She denies dizziness, falls, LOC, no chest pain or abdominal pain, no nausea or vomiting, no change in her normal bowel habits, no localized weakness - only a general weakness and trembling of her upper extremities. She called her son and told him she felt she needed medical attention, and he subsequently called EMS. Location of Pain/Injury: reports: none Pain Radiation: reports: no radiation Quality of Pain: reports: none (pt denies pain, just reports weakness) Onset/Duration: reports: 1-3 hours ago Timing: reports: still present Context/Activities at Onset: reports: none Modifying Factors: improves with: nothing Associated Symptoms: reports: weakness. denies: chest pain, diaphoresis, dizziness, EENT symptoms, nausea, shortness of breath, vomiting, trouble walking Similar Symptoms Previously?: Yes (recent admission end of October) Recently seen or treated by another doctor?: Yes - Sickle Cell Pain Related Context Sickle Cell Pain Location: reports: none Review of Systems - Adult - REVIEW OF SYSTEMS - ADULT Constitutional: reports: other (weakness) Eyes: reports: no symptoms reported Ears, Nose, Mouth & Throat: reports: no symptoms reported Cardiovascular: reports: no symptoms reported Respiratory: reports: no symptoms reported Gastrointestinal: reports: no symptoms reported Genitourinary: reports: no symptoms reported Musculoskeletal: reports: no symptoms reported Integumentary: reports: no symptoms reported Neurological: reports: no symptoms reported. denies: dizziness/vertigo Past History - Adult - PAST MEDICAL HISTORY-ADULT Review of Records: reports: Nursing Assessment Review, Medications Reviewed, Social history reviewed & non-contributory. Major Childhood Illnesses: reports: denies history Cardiovascular: reports: HTN, hyperlipidemia Respiratory: reports: denies history Gastrointestinal: reports: denies history Obstetrical/Gynecological: reports: denies history Genitourinary: reports: denies history Musculoskeletal: reports: denies history Neurological: reports: denies history Psychiatric: reports: denies history Endocrine/Immune: reports: denies history Other Conditions: reports: denies history - PRIOR SURGERIES/PROCEDURES Surgical/Procedure History: reports: reviewed, not pertinent - IMMUNIZATION STATUS Childhood Immunizations: See Nurse Assessment Flu Vaccine: See Nurse Assessment - FAMILY HISTORY Family History: reviewed, not pertinent - SOCIAL HISTORY Smoking: quit less than 1 year Substance Use: none/never Physical Exam-General - PHYSICAL EXAM-ADULT Initial Vital Signs Reviewed: Yes - CONSTITUTIONAL General Appearance: alert, no apparent distress - EYES Eyes: PERRL/EOMI - HEAD, EARS, NOSE, MOUTH & THROAT HENMT: normocephalic/atraumatic, moist mucous membranes - NECK Neck: non-tender, full range of motion, supple. negative: carotid bruit - RESPIRATORY Respiratory: chest non-tender, lungs clear, normal breath sounds - GASTROINTESTINAL (ABDOMEN) Abdominal Exam: normal bowel sounds, non tender, soft - MUSCULOSKELETAL Extremity: non-tender DTR: knee (R): 1+, knee (L): 1+ - NEUROLOGIC Neurologic: grossly normal, no motor/sensory deficits - PSYCHIATRIC Psych/Mental Status: normal mood/affect, other (oriented to person, not place, confused on time - does know year, but unsure of day or month) Progress - PLAN OF CARE/RESULTS Progress/Plan/Lab Results: Vital Signs - 8 hr 12/01/18 14:40 Temperature 98.2 F Pulse Rate 55 L Respiratory Rate 18 Blood Pressure 165/71 O2 Sat by Pulse Oximetry 96 Trop x 2 WNL; EKG x2 shows sinus bradycardia with possible evidence of old infarct. Elevated BNP; pt shows no clinical signs of edema. 5:42PM: repeat BP 170/103. Given pt;s unexplained onset of weakness, and family's report of worsening dementia, further work-up may be indicated. At this time, lower cordoba spicion for stroke as pt did not demonstrate focal deficit on exam. Pt is alert and oriented to self, but did have difficulty with place and time. Result Diagrams: 12/01/18 14:55 12/01/18 14:55 - EKG 1 Time of EKG reading by physician:: 14:45 EKG Read and Signed by:: Raymundo Santos Rate: 51 Rhythm: sinus Robbins: normal QRS: normal ST Wave: non-specific ST changes Prior EKG Comparison: changes noted (this EKG demonstrates bradycardia and ST&T wave changes; previous EKG back in October 2018 was NSR) 2 Time of EKG reading by physician:: 16:46 EKG Read and Signed by:: Raymundo Santos Rate: 59 Rhythm: sinus Robbins: normal QRS: normal ST Wave: non-specific ST changes Prior EKG Comparison: unchanged from prior - XRAY 1 XRAY Study: Chest Impression: Normal XRAY Interpretation: no acute findings; some vascular congestion - CONSULTS/PCP/HOSPITALIST Notification #1 *Consult/PCP/Hospitalist*: Vanessa Smith/Dr. De Time Discussed: 17:25 Reason/Comments: UTI, weakness of unknown etiology Consult Disposition: Admit Departure - Departure Date of Disposition Decision: 12/01/18 Time of Disposition Decision: 17:52 DIAGNOSIS: Weakness generalized UTI (urinary tract infection) Qualifiers: Urinary tract infection type: acute cystitis Hematuria presence: without hematuria Qualified Code(s): N30.00 - Acute cystitis without hematuria Disposition: ADMITTED INPATIENT 09 Certified Medical Emergency: Emergent Condition: Fair - Critical Care Note This patient required my direct & personal management of CC.: No Attestation - Physician/ CASSIDY Attestation Patient care was provided by Advanced Practice Provider:: No The physician spent face to face time with patient:: Yes (Spoke with pt and patient's son at bedside. Will admit for additional work-up of weakness, treatment of UTI) Advanced Practice Provider documentation review:: Supervising physician onsite and consulted in the evaluation and care of this patient. The physician did have a face to face encounter with the patient.
[2018-12-01] MEDS ORDERED: NS 1,000 ML IV ONE (14:46)
[2018-12-01 15:06] LABS: BASO# 0.03 X1000 (0.0-0.2); BASO% 0.5 % (0.0-0.8); EOS% 1.5 % (0.0-10.0); HEMATOCRIT 33.2 % (37.0-47.0); HEMOGLOBIN 11.2 g/dL (12.0-16.0); IMM GRAN# 0.02 X1000 (0.0-0.04); IMM GRAN% 0.3 % (0.0-0.5); LYMPH# 1.96 X1000 (1.2-3.4); LYMPH% 30.2 % (20.5-51.1); MCH 28.3 PG (27-31); MCHC 33.7 g/dL (33-37); MCV 83.8 FL (81-99); MONO# 0.58 X1000 (0.11-0.59); MONO% 8.9 % (1.7-9.3); MPV 8.5 FL (7.4-10.4); NEUT% 58.6 % (42.2-75.2); PLT 356 X1000 (130-400); RBC 3.96 XMIL (4.2-5.4); RDW 14.2 % (11.5-14.5); WBC 6.49 X1000 (4.8-10.8)
[2018-12-01 15:16] LABS: INR 1.06
[2018-12-01] MEDS ORDERED: ASPIRIN PO ONE (15:20)
[2018-12-01 15:42] LABS: ALB/GLOB RATIO 1.4; ALBUMIN 3.8 g/dL (3.5-5.0); CALCIUM 9.3 mg/dL (8.8-10.2); CREATININE 0.9 mg/dL (0.5-0.9); MAGNESIUM 2.1 mg/dL (1.5-2.7); POTASSIUM 3.7 mmol/L (3.5-5.1); TOTAL BILIRUBIN 0.34 mg/dL (0.20-1.00); TOTAL PROTEIN 6.5 g/dL (6.3-8.3)
--- NOTE | 2018-12-01 15:42 | EKG Report ---
Test Performed on : 12/01/2018 2:42:18 PM Test Reason : CP Blood Pressure : / mmHG Vent. Rate : 051 BPM Atrial Rate : 051 BPM P-R Int : 200 ms QRS Dur : 090 ms QT Int : 460 ms P-R-T Axes : 068 028 101 degrees QTc Int : [address] & T wave abnormality, consider lateral ischemia Abnormal ECG When compared with ECG of 02-NOV-2018 15:14, (Unconfirmed) T wave inversion no longer evident in Inferior leads T wave inversion more evident in Lateral leads QT has shortened Unconfirmed Result
--- NOTE | 2018-12-01 16:01 | Diag Imaging Result Doc PS360 ---
CHEST-1 VIEW - 12/01/2018 INDICATION: weakness COMPARISON: 11/05/2018 FINDINGS: The lungs are clear. Heart size is normal. No pneumothorax or pleural effusion. IMPRESSION: Negative exam. Electronically signed by Germain Guillaume 12/01/2018 3:59 PM
[2018-12-01 16:56] LABS: BILIRUBIN URINE NEGATIVE (NEGATIVE); BLOOD URINE NEGATIVE (NEGATIVE); COLOR YELLOW; GLUCOSE URINE NEGATIVE (NEGATIVE); KETONE URINE NEGATIVE (NEGATIVE); LEUKOCYTES URINE LARGE (NEGATIVE); NITRITE URINE NEGATIVE (NEGATIVE); PH URINE 6.5; PROTEIN URINE 50 mg/dL (NEGATIVE); TURBIDITY URINE CLEAR (CLEAR); UR EPITHELIAL CELLS <10 /HPF (<10); URINE BACTERIA NEGATIVE /HPF; URINE RBC <10 /HPF (<10); URINE SOURCE CLEAN CATCH; URINE WBC 20-40 /HPF (<10); UROBILINOGEN URINE NORMAL (NORMAL)
--- NOTE | 2018-12-01 17:04 | EKG Report ---
Test Performed on : 12/01/2018 4:42:59 PM Test Reason : CP Blood Pressure : / mmHG Vent. Rate : 059 BPM Atrial Rate : 059 BPM P-R Int : 194 ms QRS Dur : 090 ms QT Int : 420 ms P-R-T Axes : 078 034 086 degrees QTc Int : [address] & T wave abnormality, consider lateral ischemia Abnormal ECG When compared with ECG of 01-DEC-2018 14:42, (Unconfirmed) No significant change was found Unconfirmed Result
[2018-12-01] MEDS ORDERED: SEPTRA DS PO ONE (17:41)
[2018-12-01] MEDS ORDERED: ZOFRAN IV PRN (18:31)
[2018-12-01] MEDS ORDERED: TYLENOL PO PRN (18:31)
[2018-12-01] MEDS ORDERED: ROCEPHIN 1 GM in NS 50 ML IV SCH (18:31)
--- NOTE | 2018-12-01 19:35 | HISTORY AND PHYSICAL ---
PRIMARY CARE PROVIDER: Fredrick Armendariz. CHIEF COMPLAINT: Per patient "nothing." HPI: Ms Perkins is an 83-year-old female who carries a past medical history of hypertension, hyperlipidemia, questionable Alzheimer dementia she has not been formally diagnosed, tobacco use, most recently admitted to our service back in late October for urinary tract infection and syncope as well as clinical volume depletion and acute kidney injury and chronic T10 compression fracture. The patient was advised to follow up with neuro services on her son reports at bedside she has had a decline in her status most notable since July of this year. He states he went down to visit her in July, she lives in [facility]. He found out at that time that she was running on a 2 year tag, had let her car insurance as well as her supplemental medical insurance lapse and had several unpaid bills. He stated in June she had to go into the hospital. I believe that time was for generalized weakness as well. At that time he brought her to [place] to live with him and his and since that time she has had waxing, waning cognitive function. He states that she eats almost every hour. She is up at night rooming in the house. At times she is adamant about using her walker, other times she refuses even though she is too weak to go without it. He brought her to the ED today at her request however now she is stating that she wants to go back home and she wants to go back to her residence in [facility] where she can continue to smoke cigarettes because she has done so since age of 21. However since moving in with her son they have taken her cigarettes away. Workup in the ED was essentially unremarkable except for a mild UTI for which we will initiate her on IV antibiotics and consult Physical Therapy as well as Pressure Tank Operator for possible rehab placement. PAST MEDICAL HISTORY: 1. Hypertension. 2. Hyperlipidemia. 3. Questionable Alzheimer dementia. 4. Chronic T10 compression fracture. 5. Advanced chronic COPD emphysema. 6. Hypertension. SOCIAL HISTORY: She was a pack-a-day smoker since the age of 21 until her family recently took her cigarettes away. No alcohol or illicit drug use. She is from [facility] [place]. She has been a total of 5 times. Her most recent marriage was for 26 years and she is now . She has 1 son who was at the bedside I believe 1 grandchild. She reports she used to be an avid bowler. FAMILY HISTORY: Noncontributory . PAST SURGICAL HISTORY: Unknown. HOME MEDICATIONS: 1. Norvasc 10 mg p.o. daily. 2. Coreg 6.25 mg p.o. b.i.d. 3. Aricept 5 mg p.o. at bedtime. 4. Zoloft 25 mg p.o. at bedtime. 5. Zocor 10 mg p.o. at bedtime. ALLERGIES: No known drug allergies. PHYSICAL EXAMINATION: VITAL SIGNS: Temperature 98.2 degrees, heart rate 56, respiration 28, blood pressure 165/71, O2 is 96% on room air. GENERAL: Ms. Perkins is a feisty 83-year-old female who is sitting up in the bed drinking coffee. HEENT: Atraumatic, normocephalic. PERRL. NECK: Supple. Trachea midline. CARDIOVASCULAR: S1, S2 appreciated, positive for murmur. RESPIRATORY: Lung sounds clear bilaterally. GI: Soft, nontender, nondistended. Positive bowel sounds 4 quads. NEUROLOGIC: She is awake, alert, oriented name, date of , location as well as her previous home. She knows the name . DIAGNOSTIC DATA: Chest x-ray was a negative exam. LABORATORY DATA: White count 6, hemoglobin and hematocrit 11 and 33, platelet count is 356,000. Sodium 138, potassium 3.7, BUN 16, creatinine 0.9, blood glucose is 88, 2 sets of troponins have been negative. ProBNP is 1205. Urinalysis shows 20 to 40 WBC, large leukocytes. ASSESSMENT AND PLAN: 1. Probable urinary tract infection. Will initiate her on IV antibiotics, check a urine culture and patient was recently diagnosed and treated with urinary tract infection. 2. Generalized weakness and deconditioning. Will consult physical therapy. 3. Question of Alzheimer dementia. She has had no formal diagnosis that the son is aware of. 4. Chronic T10 compression fracture. Again will consult physical therapy. 5. Advanced chronic obstructive pulmonary disease, emphysema without exacerbation. 6. Hypertension. Will continue her home medications. 7. Further recommendations to follow physician evaluation, laboratory and diagnostic data. Dictated by CHELSEA Waite for Ananda De MD cc: CHELSEA Aguirre
--- NOTE | 2018-12-01 19:57 | HISTORY AND PHYSICAL ---
ADDENDUM: I have seen and examined Ms. Perkins today. Ms. Perkins refers to have been getting progressively weaker over the course of the week. She was discharged with family from the hospital just under a month ago because of orthostatic hypotension, clinical volume depletion, and cognitive decline. She seems to have been doing pretty well about a week after her hospitalization, but since then she has been gradually getting weak. She is now having to use her walker on a daily basis, and her son, who is her [employer], brought her in because of all these complaints. Upon presentation, she was found to have normal vitals with a pulse of 55, but that improved. Her physical exam is unremarkable except for mucous membranes being dry, but she has no neurological deficits. Her sensation is intact, and her power is 5/5 in the lower extremities. She seems to be very articulate, but she could not tell me the date. It appears she has some mild cognitive decline. Her current x-ray shows clear lungs, no pneumothorax. ASSESSMENT: 1. Multiple falls with generalized weakness, most likely secondary to musculoskeletal weakness. We are going to check on her electrolytes, including phosphorus, magnesium, and calcium, as well as vitamin D, to make sure they are all okay. Will also do a TSH to rule out any underlying thyroid abnormality. 2. Clinical volume depletion. Will gently hydrate her. 3. Previous smoking history with some fibrotic changes in the lungs on a previous CT scan, associated with advanced pulmonary emphysema noted. 4. Previous T10 compression fracture, most likely chronic, but with no neurological deficits. PLAN: Today we are going to admit Ms. Perkins to the medical floor under telemetry monitoring. She will be gently hydrated overnight. Her urine seems pathological, and there is concern that she might have infection. Because of her current clinical picture and the fact that I understand her cognitive decline seems to be getting worse, I think it is reasonable to go ahead and treat for a possible UTI. Please refer to the details of the H and P which has been dictated by the SEISMOGRAPH RECORDER in the chart. cc: Ananda De MD
[2018-12-01] MEDS: NS 1,000 ML IV SCH (19:58)
[2018-12-01] MEDS: COREG PO SCH (20:30)
[2018-12-01] MEDS: ARICEPT PO SCH (20:30)
[2018-12-01] MEDS: ZOLOFT PO SCH (20:30)
[2018-12-01] MEDS: ZOCOR PO SCH (20:30)
[2018-12-02 06:15] LABS: BASO# 0.03 X1000 (0.0-0.2); BASO% 0.4 % (0.0-0.8); EOS% 2.8 % (0.0-10.0); HEMATOCRIT 33.2 % (37.0-47.0); HEMOGLOBIN 11.2 g/dL (12.0-16.0); LYMPH# 2.19 X1000 (1.2-3.4); MCH 28.1 PG (27-31); MCHC 33.7 g/dL (33-37); MCV 83.2 FL (81-99); MONO# 0.73 X1000 (0.11-0.59); MONO% 10.3 % (1.7-9.3); MPV 8.6 FL (7.4-10.4); NEUT# 3.91 X1000 (1.4-6.5); NEUT% 55.5 % (42.2-75.2); PLT 330 X1000 (130-400); RBC 3.99 XMIL (4.2-5.4); RDW 14.2 % (11.5-14.5); WBC 7.06 X1000 (4.8-10.8)
[2018-12-02 07:56] LABS: AGAP 15; ALB/GLOB RATIO 1.2; ALBUMIN 3.8 g/dL (3.5-5.0); ALKALINE PHOSPHATASE 68 U/L (32-104); BUN 10 mg/dL (8-22); CALCIUM 8.6 mg/dL (8.8-10.2); CHLORIDE 99 mmol/L (98-107); COSMO 279; CREATININE 0.8 mg/dL (0.5-0.9); ESTIMATED GFR > 60; GLUCOSE 101 mg/dL (70-104); GOT 16 U/L (10-30); GPT 8 U/L (10-36); POTASSIUM 3.3 mmol/L (3.5-5.1); SODIUM 140 mmol/L (136-145); TCO2 26 mmol/L (25-35); TOTAL BILIRUBIN 0.29 mg/dL (0.20-1.00)
[2018-12-02] MEDS: NS 1,000 ML IV SCH (09:10)
[2018-12-02] MEDS: COREG PO SCH ×2 (09:11→19:59)
[2018-12-02] MEDS: NORVASC PO SCH (09:11)
--- NOTE | 2018-12-02 12:58 | PROGRESS NOTE ---
DATE: 12/02/2018 SUBJECTIVE: This morning, Ms. Perkins refers to be doing okay. Denies any new complaints. She denies any urinary symptoms. She has been evaluated by Physical Therapy. The patient was able to do 100 feet with minimum assistance. OBJECTIVE: Vital Signs: Blood pressure 185/75, pulse of 61, respirations 16, temperature 98.3 degrees. General: Ms. Perkins is an 83-year-old female. She is in bed. No distress. HEENT: Mucosa is pink and moist. Anicteric. Acyanotic. Neck: Supple. Chest: Clear to auscultation. Cardiovascular: Regular rate and rhythm. Abdomen: Soft. Extremities: No pedal edema. PIER RUNNER: The patient is awake, alert, oriented. No focal deficits. LABORATORY DATA: Lab data revealed mild normocytic anemia, mild hypokalemia, and vitamin D deficiency. ASSESSMENT: 1. Multiple falls at home secondary to generalized weakness. 2. Clinical volume depletion. 3. Previous history of tobacco abuse with fibrotic changes in the lungs on previous CT scan. 4. Chronic T10 compression fracture with no neurological compromise. 5. Vitamin D deficiency. Will replace. Will start the patient on supplement. 6. Hypokalemia. We will replace this. 7. Mild cognitive decline versus dementia. In general, Ms. Perkins seems to be doing a lot better. Will continue with gentle hydration. She has been evaluated by Physical Therapy. She seems to have done well. We are pending rehab placement. cc: Ananda De MD
[2018-12-02] MEDS: VITAMIN D PO SCH (13:46)
[2018-12-02] MEDS: ZOLOFT PO SCH (19:59)
[2018-12-02] MEDS: ZOCOR PO SCH (19:59)
[2018-12-02] MEDS: ARICEPT PO SCH (19:59)
[2018-12-03] MEDS ORDERED: PRINIVIL PO SCH (09:00)
[2018-12-03] MEDS: COREG PO SCH (09:41)
[2018-12-03] MEDS: VITAMIN D PO SCH (09:41)
[2018-12-03] MEDS: NORVASC PO SCH (09:41)
[2018-12-03] MEDS ORDERED: NS 500 ML IV ONE (11:58)
--- NOTE | 2018-12-03 12:30 | EKG Report ---
Test Performed on : 12/03/2018 12:01:28 PM Test Reason : syncope Blood Pressure : / mmHG Vent. Rate : 048 BPM Atrial Rate : 048 BPM P-R Int : 188 ms QRS Dur : 092 ms QT Int : 500 ms P-R-T Axes : 075 054 100 degrees QTc Int : 446 ms Sinus bradycardia. Left ventricular hypertrophy with repolarization abnormality Abnormal ECG When compared with ECG of 01-DEC-2018 16:42, (Unconfirmed) Nonspecific T wave abnormality, worse in Anterior leads T wave inversion no longer evident in Lateral leads Confirmed by Ida Asencio MD ([id number]) on 12/04/2018 8:30:37 AM
--- NOTE | 2018-12-03 12:57 | PROGRESS NOTE ---
DATE: 12/03/2018 SUBJECTIVE: This morning, Ms. Perkins went to use the restroom. I understand she was taking a shower. She took an extremely long period of time in the shower so they went to check on her and they found out that she was sitting on the bathtub, unable to get out. She says she was feeling extremely weak. I was called to come and evaluate her. At the time, they had already put her in the bed. She looked very pale. She seemed to be slightly disoriented. Her vitals revealed a blood pressure of 110/43. Sitting up did not change it that much. Her pulse was also in the low 40s and sitting up did not change that also that much. She looked like a neurally-mediated near syncope to me. OBJECTIVE: Ms. Perkins is an 83-year-old, female. She is now in bed. She seems to be still kind of a little confused. She knows where she but she said she just feels her head foggy. Neck is supple. Chest: Good air entry bilaterally. There were no crepitations. No rhonchi. Cardiovascular: Regular rate but bradycardic. No murmurs. Abdomen is soft. Extremities: No pedal edema. FOSTER WINDER: The patient is awake, alert. Seems a little confused but able to follow some basic commands. Laboratory Data: None for today. ASSESSMENT: 1. Near-syncope with borderline low blood pressure, bradycardic. Electrocardiogram showed sinus bradycardia. We are going to give the patient a bolus of 500 mL of fluid and withhold her blood pressure medications as well as the beta soledad today. We will get both cardiology and neurology to evaluate her. 2. Multiple falls at home. I think part of this could be multiple syncopes or near-syncope at home, associated with generalized weakness. 3. Clinical volume depletion on presentation, improved. 4. History of tobacco abuse in the past with fibrotic changes and emphysema on the CT scan. 5. T10 compression fracture which is chronic with no neurological compromise. 6. Vitamin D deficiency. We will replace. 7. Mild cognitive decline. Ms. Perkins seems to respond extremely well when she does not have the episode and her mentation seems to be very well for her age. I doubt if she does have any dementia. She is on donepezil. We will get neurology to evaluate her as well. PLAN: In general, Ms. Perkins had a witnessed near syncopal episode in the hospital. During the episode, she became bradycardic and hypotensive for somebody who is just remarkably hypertensive. It sounds like this is neurally-mediated syncope with both cardioinhibitory and a vaso-depressive response. Another possibility could be carotid hypersensitivity but she would need to be evaluated in a syncope clinic. We will get neurology and cardiology to evaluate her today. There is a plan to get her to a rehab at a later date. We will follow up with further recommendation from the subspecialties that have been consulted today. cc: Ananda De MD MTDD
--- NOTE | 2018-12-03 13:28 | EKG Report ---
Test Performed on : 12/03/2018 1:21:48 PM Test Reason : Near Syncope Blood Pressure : / mmHG Vent. Rate : 044 BPM Atrial Rate : 044 BPM P-R Int : 190 ms QRS Dur : 088 ms QT Int : 470 ms P-R-T Axes : 085 039 103 degrees QTc Int : 401 ms Marked sinus bradycardia. Left ventricular hypertrophy with repolarization abnormality Abnormal ECG When compared with ECG of 03-DEC-2018 12:01, (Unconfirmed) T wave inversion now evident in Anterolateral leads Confirmed by Ida Asencio MD ([id number]) on 12/04/2018 8:30:39 AM
[2018-12-03] MEDS ORDERED: KLOR-CON PO ONE (13:37)
--- NOTE | 2018-12-03 16:39 | CARDIOLOGY CONSULTATION ---
DATE: 12/03/2018 REASON FOR CONSULTATION: Bradycardia, episode of weakness. HISTORY OF PRESENT ILLNESS: Ms. Perkins is a pleasant 83-year-old, white female, with a possible history of some dementia. She recently was moved up to [place] to live with her son, previously had been living in the [facility] the [facility]. She had recent admissions earlier this month apparently for urinary tract infection and some volume depletion. More recently this hospitalization, she was apparently brought in secondary to her son feeling that she was worsening in weakness and there was a concern for possible urinary tract infection. She was admitted initially and found to have markedly elevated blood pressures. Today, she was in the shower, felt well going into it and then at some point during the shower, she called out for help. She was seated on a shower chair and unable to stand. Blood pressures were checked and systolics were in the low 100s with heart rates in the 40s to 50s. Most recent EKG around that time of event showed sinus bradycardia. The patient had no other complaints at that time, other than the lightheadedness. She had no pain complaints, no heart racing. She did not experience any overt syncope. She is sitting in bed now eating and answering questions and has no complaints at present. PAST MEDICAL HISTORY: Significant for 1. Possible dementia. 2. Hypertension. 3. Hyperlipidemia. 4. COPD. 5. Compression fractures of thoracic spine. SOCIAL HISTORY: Previously smoked for as long as 60 years or so. Recently quit. Recently moved from the [facility] to live with her son up here. FAMILY HISTORY: Hypertension. REVIEW OF SYSTEMS: A 10 system review of systems is negative except for those things mentioned in HPI. PHYSICAL EXAMINATION: Vital Signs: She has been afebrile. Her heart rate most recently was documented at 50. During the course of the hospitalization, it has been anywhere from the high 40s to the high 60s. Her most recent blood pressure is 103/48. Most recent 2 systolics have been 103 and 116 respectively. Prior to that, they were all up in the 160s to 190s systolic. Notably, all those are documented in the left arm except for one. Generally: No acute distress. She is pleasant. HEENT: Oropharynx is moist. Poor dentition. Eye examination shows pink conjunctivae, white sclerae. Neck: Shows no obvious thyromegaly or thyroid tenderness. Cardiovascular: She sounds to be in a regular rate and rhythm. There is a soft 2/6 systolic murmur heard throughout the precordium. She has no lower extremity edema. She has warm and well perfused extremities. She does have a 2+ left radial and a 1+ right radial pulse. Chest: Has decreased breath sounds somewhat diffusely but no audible wheezes. Abdomen: Soft, nontender. She has no obvious organomegaly. Skin: Warm and dry throughout without any rashes. Neurological: She seems to be moving all extremities well. She does not appear to have any focal deficits. Psychiatric: She is alert, oriented, pleasant. Normal mood and affect. PERTINENT DATA: Her chest x-ray is unremarkable. Her EKGs reviewed by me initially on the at 14:42, shows sinus rhythm, mild nonspecific ST-T changes, rate of 51 beats per minute, borderline first-degree AV block. Second EKG occurring on the at 16:42 shows sinus rhythm, nonspecific ST-T changes, rate of 59 beats per minute. Third EKG occurring on the at 12:01, shows sinus rhythm, 48 beats per minute, nonspecific ST-T changes, normal intervals.. Final EKG occurring on the at 13:21, shows sinus bradycardia at 44 beats per minute, nonspecific ST-T changes, essentially unchanged between all studies. White count 7, hematocrit 33, platelet count 330,000. Sodium 140, potassium 3.3, BUN 10, creatinine 0.8. Cardiac enzymes are negative. Her proBNP was 1205. TSH is pending. She had a recent echocardiogram that was performed on the 03 of November showing a normal ejection fraction. Left ventricular hypertrophy was noted. The aortic valve leaflets were not well visualized. No evidence of aortic stenosis by Doppler. Mild AI was identified. ASSESSMENT: Ms. Perkins is an 83-year-old female with a history of dementia who presents with generalized weakness. PLAN: At this point, she does not have a focal etiology of her generalized chronic weakness. Given her bradycardic heart rates, I would likely discontinue the beta-soledad and use alternative antihypertensives. She is on amlodipine presently. Her TSH is pending. Her echocardiogram was unremarkable more recently. We checked her blood pressures in her bilateral upper extremities and there does not appear to be a significant change amongst extremities suggesting no significant atherosclerosis in the bilateral subclavians. I would not pursue an ischemia evaluation. I have reviewed her telemetry from this hospitalization and the previous, and there were no significant abnormalities. Presently, I do not have any acute recommendations. cc: Lester Almodovar MD
--- NOTE | 2018-12-03 17:00 | CONSULTATION ---
DATE OF CONSULTATION: 12/03/2018 Ms. Perkins is 83 years old and she has had a sense of generalized weakness, possibly syncope and near-syncope, falling. History from the patient is that she began to feel weak all over a few months ago. She was admitted to the hospital about a month ago. Her discharge diagnosis then was postural hypotension. She told me today that she thinks she did not ever completely lose consciousness. She reports she sometimes suddenly feels weak all over, like she cannot stand up and like she would feel better if she sat. She usually holds on to something or sits and feels better without falling, by her report today. She reports no falls with head injury. She reports no focal neurologic feature to these episodes. She has been aware of forgetfulness but believes that has not been a major problem. She denies prior diagnosed stroke, seizure, other neurologic event. She does not use ethanol. Caffeine intake is about 4 cups of coffee daily chronically. She quit smoking cigarettes about a month ago. She told me that she takes her medicine as directed at home. Her home medicine list recorded on this admission includes amlodipine 10 mg daily, carvedilol 6.25 mg b.i.d., sertraline 25 mg at bedtime, simvastatin 10 mg at bedtime and donepezil 5 mg at bedtime added last month. She reports no problems with diarrhea and no other adverse cholinergic effects with addition of donepezil. Workup this admission includes EKG showing sinus bradycardia. Vital sign record shows heart rate ranged 49-61 and systolic blood pressures ranging from 103 to 194 in the last 8 hours. Lab shows hemoglobin 11.2, which is slightly lower than her baseline. I do not see anything else remarkable in the reported lab and I do not see anything in the chemistry profile that likely would be associated with encephalopathy or cognitive impairment. We do not have B12 or thyroid report in this computer system. MCV was 83.2 on admission. Carotid ultrasound 11/02/2018 during hospitalization last month showed insignificant stenosis bilaterally. Echocardiogram 11/03/2018 showed no source of embolus, ejection fraction 60%, LVH. PHYSICAL EXAMINATION: On exam now, she is awake, alert, attentive, reasonably cheerful, appropriate. Speech is not dysarthric. Language function is intact on bedside testing. Remote memory is fair. Recent memory is poor. She scored 20 of 30 on bedside cognitive testing. She registered 3 items and then could recall none of 3 items at 10 minutes. She interpreted a simile and a metaphor correctly. She named the president but could not discuss recent news. She spelled world backward correctly. She answered the day of the week correctly and otherwise answered incorrectly regarding orientation in time. Head and neck are unremarkable. Visual michel are full tested grossly by confrontational finger counting. Extraocular movements are full. Facial motility is little bit diminished bilaterally, but symmetric. Gag is intact. Tongue is midline. She can hear. Shoulder shrug is equal. I can overcome the left anterior tibialis grading 4+/5 and strength is otherwise normal in the arms and legs. She did well on [id number] testing bilaterally. She reports good pinprick appreciation over the hands and feet. Proprioception is good at the great toe MTP joint bilaterally. Reflexes are 1+ at the wrists and 1+ at the ankles symmetrically. Plantar response is silent bilaterally. I did not test her gait. IMPRESSION: 1. Cognitive impairment, probably major neurocognitive disorder/dementia. I agree with starting donepezil a month ago. She reports no cholinergic side effects and, if no Cardiology objection, I think we can increase that dose to 10 mg daily now. 2. History of falling, sounds most like syncope and near-syncope without primary central or peripheral nervous system etiology. I encouraged her to be careful with gait and activities, to stay well hydrated, to stand slowly and to sit quickly if she is lightheaded. It would be interesting to document her postural blood pressure while she is here. I will defer management of that problem to others. 3. Minimal isolated left anterior tibialis weakness. 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 I do not think we need to work this up urgently. If this is a factor with her gait and falling, physical therapy and AFO might be considered. Thanks for asking Neurology to see Ms. Perkins. cc: MD TERESO Hebert III
[2018-12-03] MEDS: ZOCOR PO SCH (20:57)
[2018-12-03] MEDS: ZOLOFT PO SCH (20:57)
[2018-12-04 06:58] LABS: CALCIUM 9.5 mg/dL (8.8-10.2); POTASSIUM 4.1 mmol/L (3.5-5.1)
[2018-12-04 07:55] LABS: FREE T4 1.18 ng/dL (0.93-1.70); TSH 3.46 uIUmL (0.27-4.20)
[2018-12-04] MEDS: VITAMIN D PO SCH (08:44)
--- NOTE | 2018-12-04 11:17 | PROGRESS NOTE ---
DATE: 12/04/2018 Ms. Perkins reports she continues to feel weak all over at times. She does not have any other specific complaint right now. The postural blood pressure checks show slight systolic blood pressure drop and increased heart rate going from supine to sitting early this morning. Carvedilol has been stopped. She reports a little bit of tremulousness, which might be related to stopping beta soledad, but, on my exam, there is not classifiable tremor. I will resume donepezil and increase the dose to 10 mg daily. Thanks for asking Neurology to see Ms. Perkins. cc: Alejandro Griffin III, MD
[2018-12-04 11:47] VITALS: BP 127/85
--- NOTE | 2018-12-04 14:05 | DISCHARGE SUMMARY ---
ADMISSION DATE: 12/03/2018 DISCHARGE DATE: 12/04/2018 PRIMARY CARE PHYSICIAN: CHELSEA Aguirre. ADMISSION DIAGNOSES: 1. Probable urinary tract infection. 2. Generalized weakness and deconditioning. 3. Question of Alzheimer's dementia. 4. Chronic T10 compression fracture. 5. Advanced chronic obstructive pulmonary disease. 6. Hypertension. DISCHARGE DIAGNOSES: 1. Near-syncope with borderline low blood pressure and bradycardic, improved. 2. Multiple falls at home. 3. Clinical volume depletion on presentation, improved. 4. T10 compression fracture, which is chronic with no neurological compromise. 5. Mild cognitive decline. 6. Generalized weakness and deconditioning. SUMMARY OF FINDINGS: This is an 83-year-old female who presented to the emergency room with generalized weakness, waxing and waning cognitive function, has a chronic T10 compression fracture. We consulted Physical Therapy. We consulted Cardiology and Neurology, who felt that we could increase her donepezil up to 10 mg daily. Cardiology felt that given her bradycardic heart rates, we should likely discontinue her beta blockers, and use alternatives, and so now her blood pressures today are 127/85, heart rate of 63, and it is felt that she can safely be discharged to rehab today. DISCHARGE MEDICATIONS: Include sertraline 25 mg p.o. at bedtime, simvastatin 10 mg p.o. at bedtime, Norvasc 5 mg p.o. daily, and donepezil 10 mg p.o. daily. FOLLOWUP: She will follow up with her primary care physician once she has completed her rehab stay, and they will make her an appointment at that time. TIME SPENT: A 35-minute discharge. Dictated by CHELSEA Phelps for Azeem Hunt MD cc: CHELSEA Phelps CRNP Agree with the above. the following is my own face to face assessment. still pretty weak but nothing focal. medically stable for discharge to rehab. [facility]
[2018-12-04] MEDS ORDERED: ARICEPT PO SCH (21:00)
== END 2018-12-04 16:13 | DRG 309 ==
LOC: SUPCPDRO → ED 14:22 → 3N 14:22 → SUATTDRO 12-03 10:34
PROVIDERS: ATTEND Internal Medicine